=== PATIENT | female | born 1945 | race Two or more races ===

== ENCOUNTER 2018-10-10 10:14 | Outpatient (CLI) | payer OTHER | END 2018-10-10 10:27 | disposition home or self-care (01) | LOC: NUCLEAR 10:14 | DX: K80.10 Calculus of gallbladder with chronic cholecystitis without obstruction (principal) | CPT/HCPCS: 78227; A9537 ==

== ENCOUNTER 2018-11-08 06:36 | Day surgery (SDC) | payer OTHER ==
[~2018-11-08] VITALS: Ht 152.4 cm; Wt 83.9 kg
[~2018-11-08 06:36] MED LIST: COZAAR100 MG PO; GLIPIZIDE10 MG PO; NORVASC5 MG PO
== END 2018-11-08 13:30 | disposition home or self-care (01) ==
LOC: CIR.AMB 06:36
DX: K80.10 Calculus of gallbladder with chronic cholecystitis without obstruction (principal)

== ENCOUNTER 2019-08-01 05:25 | Day surgery (SDC) | payer OTHER ==
[~2019-08-01 05:25] MED LIST changes: +GLIMEPIRIDE1 MG PO
[2019-08-01] MEDS ORDERED: NEURONTIN300 MG PO (13:10)
[2019-08-01] MEDS ORDERED: ULTRAM50 MG PO (13:10)
[2019-08-01] MEDS ORDERED: COLACE100 MG PO (13:12)
== END 2019-08-01 16:00 | disposition home or self-care (01) ==
LOC: CIR.AMB 05:25
DX: K43.2 Incisional hernia without obstruction or gangrene (principal)

== ENCOUNTER 2020-09-26 07:52 | Outpatient (CLI) | payer OTHER ==
[~2020-09-26 07:52] MED LIST changes: +COLACE100 MG PO; +NEURONTIN300 MG PO; +ULTRAM50 MG PO
== END 2020-09-26 08:00 | disposition home or self-care (01) ==
LOC: NUCLEAR 07:52
PROVIDERS: ATTEND Internal Medicine Cardiovascular Disease
DX: I48.91 Unspecified atrial fibrillation (principal)

== ENCOUNTER 2020-11-04 07:08 | Outpatient (CLI) | payer OTHER | END 2020-11-04 07:17 | disposition home or self-care (01) | LOC: NUCLEAR 07:08 | PROVIDERS: ATTEND Internal Medicine Cardiovascular Disease | DX: I20.8 Other forms of angina pectoris (principal) | CPT/HCPCS: 78452; 93017; A9500; J0153 ==

== ENCOUNTER 2021-03-16 09:35 | Inpatient (IN) | payer OTHER ==
[~2021-03-16] VITALS: Ht 152.4 cm; Wt 79.8 kg
--- NOTE | 2021-03-16 09:50 | NUR ---
PACIENTE ALERTA Y ORIENTADA. REFIERE RIGHT FLANK PAIN. PACIENTE VIENE CON REFERIDO PARA EL DR. GUNDERSON. SINTOMAS PRESENTES AL MOMENTO. SE JHOAN S/V. SE UBICA EN HYUN DE OBSERVACION PARA CONSULTA MEDICA.
--- NOTE | 2021-03-16 10:03 | NUR ---
RN TROY ORIENTA PTE SOBRE EL TRATAMIENTO ORDENADO POR EL DR PAGAN PTE ALERTA Y ORIENTADO POR 3 EL CUAL REALIZA MUESTRAS DE LABORTORIO Y NOTIFICA ESTUDIO DE CT PTE SE MANTIENE EN OBSERVACION Y BAJO TRATAMIENTO.
--- NOTE | 2021-03-16 15:20 | NUR ---
PTE ALERTA Y ORIENTADA X 3 ESFERAS,EN ANTONINO CON BARANDAS ELEVADAS,SIN FAMILIAR AL MOMENTO DE LA TAMARA.NO REFIERE DOLOR AL MOMENTO.AREA DE VENOPUNCION PATENTE Y TIA DE EDEMA CON FLUIDOS DE MANTENIMIENTO BAJANDO SIN DIFICULTAD,PENDIENTE A CT A LAS 4PM.
[2021-04-04] MEDS ORDERED: NORVASC5 MG PO (13:04)
[2021-04-04] MEDS ORDERED: COZAAR100 MG PO (13:04)
[2021-04-04] MEDS ORDERED: GLIMEPIRIDE1 MG PO (13:04)
== END 2021-04-04 14:42 | disposition home or self-care (01) | DRG 982 ==
LOC: ER 09:35 → MEDI 18:13 → SEC-K 18:13 → MEDI 03-17 07:33
PROVIDERS: ADMIT Specialist; ATTEND Specialist
PROC: 4A12X4Z Monitoring of Cardiac Electrical Activity, External Approach (ICD-10-PCS; 2021-03-16)
PROC: 8E0ZXY6 Isolation (ICD-10-PCS; 2021-03-16)
PROC: BW2110Z Computerized Tomography (CT Scan) of Abdomen and Pelvis using Low Osmolar Contrast, Unenhanced and Enhanced (ICD-10-PCS; 2021-03-16)
PROC: BW30Y0Z Magnetic Resonance Imaging (MRI) of Abdomen using Other Contrast, Unenhanced and Enhanced (ICD-10-PCS; 2021-03-16)
PROC: 0H97X0Z Drainage of Abdomen Skin with Drainage Device, External Approach (ICD-10-PCS; principal; 2021-03-19)
PROC: BW21ZZZ Computerized Tomography (CT Scan) of Abdomen and Pelvis (ICD-10-PCS; 2021-03-25)
PROC: BW40ZZZ Ultrasonography of Abdomen (ICD-10-PCS; 2021-03-27)
PROC: 0WPF30Z Removal of Drainage Device from Abdominal Wall, Percutaneous Approach (ICD-10-PCS; 2021-04-03)
DX: S30.1XXA Contusion of abdominal wall, initial encounter (principal); K80.10 Calculus of gallbladder with chronic cholecystitis without obstruction; I48.0 Paroxysmal atrial fibrillation; I70.0 Atherosclerosis of aorta; X50.0XXA Overexertion from strenuous movement or load, initial encounter; Y93.H2 Activity, gardening and landscaping; Y92.018 Other place in single-family (private) house as the place of occurrence of the external cause; Y99.8 Other external cause status; I11.9 Hypertensive heart disease without heart failure; E11.9 Type 2 diabetes mellitus without complications; D64.9 Anemia, unspecified; K43.2 Incisional hernia without obstruction or gangrene; Z20.822 Contact with and (suspected) exposure to COVID-19; B96.1 Klebsiella pneumoniae [K. pneumoniae] as the cause of diseases classified elsewhere; B95.2 Enterococcus as the cause of diseases classified elsewhere
CPT/HCPCS: 74181

== ENCOUNTER → 2025-11-12 07:05 | Outpatient (CLI) | payer OTHER | END | disposition home or self-care (01) | LOC: NUCLEAR 07:00 | PROVIDERS: ATTEND Internal Medicine | DX: I20.9 Angina pectoris, unspecified (principal) | CPT/HCPCS: 78452; 93017; A9500 ==